=== PATIENT | male | born 1975 | race American Indian/Alaskan Native ===

== ENCOUNTER 2018-04-14 11:24 | Emergency (ER) | payer OTHER ==
[2018-04-14 11:39] VITALS: BP 147/90
--- NOTE | 2018-04-14 11:56 | Emergency Department Report ---
HPI - General Chief Complaint: Sore Throat Time Seen by Provider: 04/14/18 11:51 - HPI HPI: Room 30 The patient is a 42-year-old male presenting with a chief complaint of sore throat. The patient states symptoms began 5 days ago with rhinorrhea. 4 days ago the patient states she developed a sore throat pain continued to worsen despite taking NyQuil. Patient missed a subjective fever and occasional cough. Patient describes pain as sharp in nature. The patient gives his pain a score of 10/10 Location: Throat Duration: [See above] Quality: Sharp Severity: 10/10 Modifying factors: [see above] Context: [see above] Mode of transportation: [not driving] ED Past Medical Hx - Past Medical History Previous Medical History?: Yes Additional medical history: Fatty Liver - Surgical History Past Surgical History?: No - Family History Family history: no significant - Social History Smoking Status: Never Smoker Substance Use Type: None (denies illicit drug use) - Medications Home Medications: Home Medications Medication Instructions Recorded Confirmed Last Taken Type Ibuprofen [Motrin] 600 mg PO Q6H PRN #20 tablet 07/11/13 Unknown Rx Loratadine [Claritin] 10 mg PO DAILY #30 tablet 07/11/13 Unknown Rx Methocarbamol [Robaxin] 750 mg PO BID PRN #14 tab 07/11/13 Unknown Rx Triamcinolone 0.5% [Kenalog 0.5% 1 applic TP BID #1 tube 07/11/13 Unknown Rx Cream] Amoxicillin/Potassium Clav 1 each PO BID #20 tablet 04/14/18 Unknown Rx [Augmentin 875-125 Tablet] HYDROcodone/APAP 5-325 [Calera 1 - 2 each PO Q6HR PRN #14 tablet 04/14/18 Unknown Rx 5/325] Ibuprofen [Motrin 800 MG tab] 800 mg PO Q8HR PRN #20 tablet 04/14/18 Unknown Rx ED Review of Systems ROS: Stated complaint: STREP THROAT Other details as noted in HPI Constitutional: fever (subjective) Eyes: denies: eye pain ENT: throat pain Respiratory: cough Cardiovascular: denies: chest pain Endocrine: no symptoms reported Gastrointestinal: denies: abdominal pain Genitourinary: denies: dysuria Musculoskeletal: denies: back pain Neurological: denies: headache Physical Exam - Physical Exam Vital Signs: Vital Signs 04/14/18 11:36 Temperature 98.1 F Pulse Rate 99 H Respiratory 18 Rate Blood Pressure 147/90 O2 Sat by Pulse 97 Oximetry Physical Exam: GENERAL: The patient is well-developed well-nourished male sitting in chair not appear to be in acute distress HEENT: Normocephalic. Atraumatic. Pharynx erythematous with exudate bilaterally NECK: Supple. No stridor CHEST/LUNGS: Clear to auscultation. There is no respiratory distress noted. HEART/CARDIOVASCULAR: Regular. There is no tachycardia. There is no gallop rub or murmur. ABDOMEN: Abdomen is soft, nontender. Patient has normal bowel sounds. There is no abdominal distention. SKIN: There is no rash. There is no edema. There is no diaphoresis. NEURO: The patient is awake, alert, and oriented. The patient is cooperative. The patient has normal speech MUSCULOSKELETAL: There is no evidence of acute injury. ED Course Vital Signs 04/14/18 11:36 Temperature 98.1 F Pulse Rate 99 H Respiratory 18 Rate Blood Pressure 147/90 O2 Sat by Pulse 97 Oximetry ED Medical Decision Making - Differential Diagnosis pharyngitis Critical care attestation.: If time is entered above; I have spent that time in minutes in the direct care of this critically ill patient, excluding procedure time. ED Disposition Clinical Impression: Acute pharyngitis Disposition: DC-01 TO HOME OR SELFCARE Is pt being admited?: No Does the pt Need Aspirin: No Condition: Stable Instructions: Pharyngitis (ED) Additional Instructions: Return to the emergency department immediately should you develop worsening symptoms, fever, inability to tolerate food or liquid or any other concerns. Prescriptions: Amoxicillin/Potassium Clav [Augmentin 875-125 Tablet] 1 each PO BID #20 tablet HYDROcodone/APAP 5-325 [Calera 5/325] 1 - 2 each PO Q6HR PRN #14 tablet PRN Reason: Pain Ibuprofen [Motrin 800 MG tab] 800 mg PO Q8HR PRN #20 tablet PRN Reason: Pain, Moderate (4-6) Referrals: GALA SAUCEDA MD [Staff Physician] - 3-5 Days (Dr. Sauceda is an [employer] architect (ear nose and throat doctor) sees. Please follow up with her for further evaluation) GUNNAR WORRELL MD [Staff Physician] - 3-5 Days (Dr. Worrell is a primary physician. Please follow up with him to be established as a patient) Time of Disposition: 11:56
== END 2018-04-14 12:13 | disposition home or self-care (01) ==
LOC: ED 11:24
DX: J02.9 Acute pharyngitis, unspecified (principal)
CPT/HCPCS: 99282

== ENCOUNTER 2018-04-25 08:52 | Emergency (ER) | payer SELFPAY ==
[2018-04-25 08:57] VITALS: BP 136/88
[2018-04-25] MEDS ORDERED: DECADRON IM ONE (09:12)
[2018-04-25] MEDS ORDERED: NORCO 7.5/325 PO ONE (09:12)
--- NOTE | 2018-04-25 09:12 | Emergency Department Report ---
ED General Adult HPI - General Chief complaint: Pain General Stated complaint: JOINT PAIN Time Seen by Provider: 04/25/18 09:07 Source: patient Mode of arrival: Ambulatory Limitations: No Limitations - History of Present Illness Initial comments: Pt is 42 yo AA male with hx of gout for which he sees his PCP in [place]. He has an interview in the AM and he has not been drinking "his pain away" for 2 weeks so he is in the ER today for pain. The pain is in his joints kamlesh his elbow. He walks with cane and appears older than stated age. Denies trauma. -: Gradual, year(s) Consistency: intermittent Improves with: other (etoh) Associated Symptoms: denies other symptoms - Related Data Previous Rx's Medication Instructions Recorded Last Taken Type predniSONE [Deltasone] 50 mg PO QDAY #5 tab 04/25/18 Unknown Rx Allergies Allergy/AdvReac Type Severity Reaction Status Date / Time No Known Allergies Allergy Verified 04/25/18 08:55 ED Review of Systems ROS: Stated complaint: JOINT PAIN Other details as noted in HPI Comment: All other systems reviewed and negative Constitutional: denies: chills Eyes: denies: as per HPI ENT: denies: ear pain Respiratory: denies: cough Cardiovascular: denies: palpitations Gastrointestinal: denies: nausea Genitourinary: denies: dysuria Musculoskeletal: as per HPI, other (joint pain) Skin: denies: lesions Neurological: denies: headache Psychiatric: denies: anxiety Hematological/Lymphatic: denies: easy bleeding ED Past Medical Hx - Past Medical History Additional medical history: Fatty Liver, gout - Surgical History Past Surgical History?: No - Family History Family history: no significant - Social History Smoking Status: Never Smoker Substance Use Type: None - Medications Home Medications: Home Medications Medication Instructions Recorded Confirmed Last Taken Type predniSONE [Deltasone] 50 mg PO QDAY #5 tab 04/25/18 Unknown Rx ED Physical Exam - General Limitations: No Limitations General appearance: alert - Head Head exam: Present: atraumatic - Eye Eye exam: Present: normal appearance, PERRL Pupils: Present: normal accommodation - ENT ENT exam: Present: mucous membranes moist - Neck Neck exam: Present: normal inspection - Respiratory Respiratory exam: Present: normal lung sounds bilaterally - Cardiovascular Cardiovascular Exam: Present: regular rate - GI/Abdominal GI/Abdominal exam: Present: soft, normal bowel sounds - Rectal Rectal exam: Present: deferred - Extremities Exam Extremities exam: Present: normal inspection, full ROM, normal capillary refill, other (no effusion of r elbow). Absent: tenderness - Back Exam Back exam: Present: normal inspection - Neurological Exam Neurological exam: Present: alert, oriented X3 - Psychiatric Psychiatric exam: Present: normal affect ED Course Vital Signs 04/25/18 08:55 Temperature 98.4 F Pulse Rate 81 Respiratory 20 Rate Blood Pressure 136/88 O2 Sat by Pulse 100 Oximetry ED Medical Decision Making - Medical Decision Making see HPI treated for pain in ER home with prednisone PO pt requesting narcotics he has been instructed to see PCP for those. - Differential Diagnosis a/c pain Critical care attestation.: If time is entered above; I have spent that time in minutes in the direct care of this critically ill patient, excluding procedure time. ED Disposition Clinical Impression: Chronic pain, History of gout Disposition: - TO HOME OR SELFCARE Is pt being admited?: No Does the pt Need Aspirin: No Condition: Stable Instructions: Acute Gouty Arthritis (ED) Additional Instructions: hydrate well with water- 2 gallons a day avoid alcohol med as ordered today follow up with pcp xi referral given below avoid foods that may trigger gout motrin or tylenol for mild pain Prescriptions: predniSONE [Deltasone] 50 mg PO QDAY #5 tab Referrals: ULISSES PARK MD [Primary Care Provider] - 3-5 Days Time of Disposition: 09:20
== END 2018-04-25 09:43 | disposition home or self-care (01) ==
LOC: ED 08:52
DX: G89.29 Other chronic pain (principal); M25.529 Pain in unspecified elbow; M25.50 Pain in unspecified joint; Z87.39 Personal history of other diseases of the musculoskeletal system and connective tissue
CPT/HCPCS: 96372; 99282; J1100

== ENCOUNTER 2018-06-01 08:52 | Emergency (ER) | payer OTHER ==
[2018-06-01 09:14] VITALS: BP 139/90
[2018-06-01] MEDS ORDERED: DECADRON IM ONE (10:12)
--- NOTE | 2018-06-01 10:15 | Emergency Department Report ---
ED Lower Extremity HPI - General Chief Complaint: Extremity Problem,Nontraumatic Stated Complaint: LFT ANKLE GOUT PAIN/HAND PAIN Source: patient Mode of arrival: Ambulatory Limitations: No Limitations - History of Present Illness Initial Comments: This is a 42-year-old male who presents with left ankle and foot pain secondary gout flare. Past medical history of gout. Patient states it flares every so often. He reports pain to lateral left ankle worse with touch. He reports pain is 10 out of 10 on pain scale and a constant aching sensation. He denies injury. He is ambulating with a cane. MD Complaint: ankle injury (left), foot injury (left) Onset/Timin -: days(s) Injury: Ankle: Left, Foot: Left Type of Injury: unknown Place: home Severity: moderate Severity scale (0 -10): 7 Improves With: nothing Worsens With: weight bearing Context: walking Associated Symptoms: swelling, able to partially bear weight, ambulatory. denies: snap/pop sensation, numbness, tingling, unable to bear weight Treatments Prior to Arrival: cold therapy - Related Data Previous Rx's Medication Instructions Recorded Last Taken Type predniSONE [Deltasone] 50 mg PO QDAY #5 tab 04/25/18 Unknown Rx Indomethacin [Indocin] 50 mg RC TID #15 supp.rect 06/01/18 Unknown Rx Prednisone [predniSONE 10 mg 10 mg PO .TAPER #1 tab.ds.pk 06/01/18 Unknown Rx (6-Day Pack, 21 Tabs)] Allergies Allergy/AdvReac Type Severity Reaction Status Date / Time No Known Allergies Allergy Verified 06/01/18 08:53 ED Review of Systems ROS: Stated complaint: LFT ANKLE GOUT PAIN/HAND PAIN Other details as noted in HPI Constitutional: denies: chills, fever Respiratory: denies: cough, shortness of breath, wheezing Cardiovascular: denies: chest pain, palpitations Gastrointestinal: denies: abdominal pain, nausea, diarrhea Musculoskeletal: joint swelling (left ankle), arthralgia (left ankle). denies: back pain Skin: denies: rash, lesions Neurological: denies: headache, weakness, paresthesias Psychiatric: denies: anxiety, depression ED Past Medical Hx - Past Medical History Additional medical history: Fatty Liver, gout - Social History Smoking Status: Never Smoker Substance Use Type: None - Medications Home Medications: Home Medications Medication Instructions Recorded Confirmed Last Taken Type predniSONE [Deltasone] 50 mg PO QDAY #5 tab 04/25/18 Unknown Rx Indomethacin [Indocin] 50 mg RC TID #15 supp.rect 06/01/18 Unknown Rx Prednisone [predniSONE 10 mg 10 mg PO .TAPER #1 tab.ds.pk 06/01/18 Unknown Rx (6-Day Pack, 21 Tabs)] ED Physical Exam - General Limitations: No Limitations General appearance: alert, in no apparent distress - Respiratory Respiratory exam: Present: normal lung sounds bilaterally. Absent: respiratory distress - Cardiovascular Cardiovascular Exam: Present: regular rate, normal rhythm. Absent: systolic murmur, diastolic murmur, rubs, gallop - GI/Abdominal GI/Abdominal exam: Present: soft, normal bowel sounds - Expanded Lower Extremity Exam Left Hip exam: Present: normal inspection, full ROM Upper Leg exam: Present: normal inspection, full ROM Knee exam: Present: normal inspection, full ROM Lower Leg exam: Present: normal inspection, full ROM Ankle exam: Present: tenderness (tenderness and swelling to lateral side), swelling. Absent: full ROM (Limited range of motion), abrasion, laceration, ecchymosis, deformity, crepidus, dislocation, erythema, anterior draw sign Foot/Toe exam: Present: normal inspection, full ROM Neuro vascular tendon exam: Present: no vascular compromise Gait: Positive: observed and limited by pain - Neurological Exam Neurological exam: Present: alert, oriented X3 - Psychiatric Psychiatric exam: Present: normal affect, normal mood - Skin Skin exam: Present: warm, dry, intact, normal color. Absent: rash ED Course Vital Signs 06/01/18 09:10 Temperature 98.1 F Pulse Rate 90 Respiratory 16 Rate Blood Pressure 139/90 [Left] O2 Sat by Pulse 99 Oximetry ED Lower Extremity MDM - Medical Decision Making This is a 42 y.o. male that presents with swelling over left lateral malleolus x 3 days. Hx of Gout. Patient is stable and examined by me. No acute signs of distress noted. Given dexamethasone 8 mg IM once in ER for gout. Discussed plan to start prednisone taper and indomethacin 50 mg po tid with patient. Educated patient on low purine diet and given handout. Patient agrees to ED plan of care. Discharged home and follow up with PCP in 3 days. Critical care attestation.: If time is entered above; I have spent that time in minutes in the direct care of this critically ill patient, excluding procedure time. ED Disposition Clinical Impression: Pain and swelling of left ankle Gout flare Qualifiers: Gout site: ankle Gout etiology: idiopathic Laterality: left Qualified Code(s): M10.072 - Idiopathic gout, left ankle and foot Disposition: TO HOME OR SELFCARE Is pt being admited?: No Does the pt Need Aspirin: No Condition: Stable Instructions: Acute Gouty Arthritis (ED), Low Purine Diet (ED) Additional Instructions: Avoid foods that have a high purine content such as alcohol, organ meats, and seafood can cause higher risk of elevated uric acid and gout. Reduce intake of alcohol, especially beer, lowers the risk of gout. Reduce the intake of vegetables high in purines such as asparagus, spinach, and mushrooms. Dairy products reduce the risk of gout. Follow up with primary care provider in 2-3 days. Prescriptions: Indomethacin [Indocin] 50 mg RC TID #15 supp.rect Prednisone [predniSONE 10 mg (6-Day Pack, 21 Tabs)] 10 mg PO .TAPER #1 tab.ds.pk Referrals: [facility] [Other] - 3-5 Days [facility] [Outside] - 3-5 Days [facility] [Outside] - 3-5 Days Time of Disposition: 10:25
== END 2018-06-01 10:40 | disposition home or self-care (01) ==
LOC: ED 08:52
DX: M10.9 Gout, unspecified (principal)
CPT/HCPCS: 96372; 99282; J1100

== ENCOUNTER 2019-12-30 10:53 | Emergency (ER) | payer OTHER ==
[2019-12-30 11:01] VITALS: BP 124/79
[2019-12-30] MEDS ORDERED: KETOROLAC 30 MG/1 ML INJ IM ONE (11:47)
--- NOTE | 2019-12-30 11:50 | Emergency Department Report ---
ED Back Pain/Injury HPI - General Chief Complaint: Back Pain/Injury Stated Complaint: BACK SPASMS/LEFT ARM PAIN Time Seen by Provider: 12/30/19 11:32 Source: patient Limitations: No Limitations - History of Present Illness Initial Comments: 44 y/o male comes in for bask spasms that started on . Patient reports that he as taking Ibuprofen and flexeril. Reports that he was lefting heavy object at work when this happened. Patient denies any direct force of injury suck a fall or physical alteration. MD Complaint: back pain Onset/Timin -: days(s) Similar Symptoms Previously: Yes Place: work Severity scale (0 -10): 10 Quality: burning Consistency: intermittent Improves With: none Worsens With: movement Associated Symptoms: denies other symptoms, difficulty walking. denies: difficulty urinating, incontinence Treatments Prior to Arrival: NSAIDS, other medications (flexeril) - Related Data Previous Rx's Medication Instructions Recorded Last Taken Type predniSONE [Deltasone] 50 mg PO QDAY #5 tab 04/25/18 Unknown Rx Indomethacin [Indocin] 50 mg RC TID #15 supp.rect 06/01/18 Unknown Rx Prednisone [predniSONE 10 mg 10 mg PO .TAPER #1 tab.ds.pk 06/01/18 Unknown Rx (6-Day Pack, 21 Tabs)] Ibuprofen [Motrin 800 MG tab] 800 mg PO Q8HR PRN #30 tablet 12/30/19 Unknown Rx Methocarbamol [Robaxin] 500 mg PO Q6H PRN #30 tablet 12/30/19 Unknown Rx Allergies Allergy/AdvReac Type Severity Reaction Status Date / Time No Known Allergies Allergy Verified 12/30/19 10:54 ED Review of Systems ROS: Stated complaint: BACK SPASMS/LEFT ARM PAIN Other details as noted in HPI Comment: All other systems reviewed and negative ED Past Medical Hx - Past Medical History Additional medical history: Fatty Liver, gout - Social History Smoking Status: Never Smoker Substance Use Type: Alcohol - Medications Home Medications: Home Medications Medication Instructions Recorded Confirmed Last Taken Type predniSONE [Deltasone] 50 mg PO QDAY #5 tab 04/25/18 Unknown Rx Indomethacin [Indocin] 50 mg RC TID #15 supp.rect 06/01/18 Unknown Rx Prednisone [predniSONE 10 mg 10 mg PO .TAPER #1 tab.ds.pk 06/01/18 Unknown Rx (6-Day Pack, 21 Tabs)] Ibuprofen [Motrin 800 MG tab] 800 mg PO Q8HR PRN #30 tablet 12/30/19 Unknown Rx Methocarbamol [Robaxin] 500 mg PO Q6H PRN #30 tablet 12/30/19 Unknown Rx ED Physical Exam - General Limitations: No Limitations General appearance: alert, in distress - Head Head exam: Present: atraumatic, normocephalic - Eye Eye exam: Present: normal appearance - ENT ENT exam: Present: mucous membranes moist - Neck Neck exam: Present: normal inspection, full ROM - Back Exam Back exam: Present: tenderness, muscle spasm - Neurological Exam Neurological exam: Present: alert, oriented X3 - Psychiatric Psychiatric exam: Present: normal affect, normal mood - Skin Skin exam: Present: warm, dry, intact, normal color. Absent: rash ED Course Vital Signs 12/30/19 11:00 Temperature 97.7 F Pulse Rate 88 Respiratory 20 Rate Blood Pressure 124/79 O2 Sat by Pulse 100 Oximetry ED Medical Decision Making - Medical Decision Making 44 y/o male comes in for bask spasms that started on . Patient reports that he as taking Ibuprofen and flexeril. Reports that he was lefting heavy object at work when this happened. Patient denies any direct force of injury suck a fall or physical alteration. Patient will be given Toradol 60mg IM. Discharge on robaxin and Ibuprofen. Follow up with back specialist. Critical care attestation.: If time is entered above; I have spent that time in minutes in the direct care of this critically ill patient, excluding procedure time. ED Disposition Clinical Impression: Muscle spasm of back Disposition: DC-01 TO HOME OR SELFCARE Is pt being admited?: No Does the pt Need Aspirin: No Condition: Stable Instructions: Muscle Spasm (ED) Prescriptions: Ibuprofen [Motrin 800 MG tab] 800 mg PO Q8HR PRN #30 tablet PRN Reason: Pain , Severe (7-10) Methocarbamol [Robaxin] 500 mg PO Q6H PRN #30 tablet PRN Reason: Muscle Spasm Referrals: LAURA TURNER II, MD [Staff Physician] - 3-5 Days
== END 2019-12-30 12:33 | disposition home or self-care (01) ==
LOC: ED 10:53
DX: M62.830 Muscle spasm of back (principal); Z79.1 Long term (current) use of non-steroidal anti-inflammatories (NSAID); Z79.899 Other long term (current) drug therapy
CPT/HCPCS: 96372; 99282; J1885